=== PATIENT | male | born 1935 | race Caucasian/White ===

== ENCOUNTER 2017-02-02 11:37 | Outpatient (CLI) | payer MEDICARE, OTHER ==
[~2017-02-02] VITALS: Ht 185.4 cm; Wt 78.6 kg
--- NOTE | ~2017-02-02 | HEMODYNAMI ---
PATIENT:DAVID GUADARRAMA MEDICAL RECORD: [id number] : 39 LOCATION:[facility] ADMISSION DATE: 02/02/17 Generatedon:02/02/201715:01 Patient name: DAVID GUADARRAMA Patient #: [id number] : 1935 Date of study: 02/02/2017 Page: Of Hemodynamic Procedure Report Patient Data Patient Demographics Procedure consent was obtained First Name: DAVID Gender: Male Last Name: THIERRY : 1935 Patient #: [id number] Age: 81 year(s) Race: SSN: [id number] Additional ID: [id number] Contact details [address]: [address] [place] [address] State: [place] City: [place] Zip code: [address] Past Medical History Allergies: No known allergies Admission Admission Data Admission Date: 02/02/2017 Admission Time: 11:37 Admit Source: Other Insurance Payor: Medicare, Private health insurance Height (in.): 73 BSA: 2.02 (m2) Height (cm.): 185.42 BMI: 22.82 (kg/m2) Weight (lbs.): 173 Weight (kg.): 78.47 Procedure Procedure Types Cath Procedure Diagnostic Procedure PPM/ICD PPM Dual Implant Miscellaneous Procedures Moderate Sedation up to 45 minutes Procedure Description Procedure Date Procedure Date: 02/02/2017 Procedure Start Time: 14:15 Procedure End Time: 14:57 Procedure Staff Name Function Keke Elizabeth RT Scrub Elkin Mancia RN Nurse Magdy Green MD Assisting physician Jay Sumner MD Performing Physician Luis Ruiz RT Monitor Procedure Data Cath Procedure Fluoroscopy Diagnostic fluoroscopy Total fluoroscopy Time: 1.6 time: 1.6 min min Diagnostic fluoroscopy Total fluoroscopy dose: 63 dose: 63 mGy mGy Contrast Material Contrast Material Type Amount (ml) Isovue 300 0 Estimated blood loss: 5 ml Procedure Complications No complications Procedure Medications Medication Administration Route Dosage Oxygen NC 2 l/min Ancef (1Gm/50ml NS) I.V.P.B 1 g 0.9% NaCl I.V. 100 ml/hr Fentanyl I.V. 50 mcg Versed I.V. 1 mg Fentanyl I.V. 50 mcg Versed I.V. 1 mg Ancef Irrigation Topical 1 g (1gm/500ml NS) Hemodynamics Rest BSA: 2.02 (m2) O2 Consumption: Estimated: 231.89 (ml/min) O2 Consumption indexed : Estimated:114.8 (ml/min/m) Heart Rate: 72 (bpm) Snapshots Pre Cath Intra NCS Post Cath Vital Signs Time Heart Resp SPO2 NIBP (mmHg) Rhythm Pain Sedation Rate (ipm) (%) Status Level (bpm) 13:54:24 81 18 99 158/93(129) NSR 0 (11) 10(A) , No pain 13:58:40 86 19 96 170/91(145) NSR 0 (11) 10(A) , No pain 14:03:00 68 20 96 168/91(138) NSR 0 (11) 10(A) , No pain 14:08:03 81 19 99 169/94(137) NSR 0 (11) 10(A) , No pain 14:18:46 72 19 96 153/93(123) NSR 0 (11) 10(A) , No pain 14:22:58 94 20 97 137/78(101) NSR 0 (11) 10(A) , No pain 14:27:16 94 19 96 120/60(93) NSR 0 (11) 10(A) , No pain 14:31:26 80 17 96 125/70(109) NSR 0 (11) 10(A) , No pain 14:35:34 97 19 97 119/77(89) NSR 0 (11) 10(A) , No pain 14:39:44 90 19 98 121/65(97) NSR 0 (11) 10(A) , No pain 14:43:52 93 16 96 119/70(89) NSR 0 (11) 10(A) , No pain 14:47:57 96 14 97 124/74(102) NSR 0 (11) 10(A) , No pain 14:52:03 109 14 97 123/79(94) NSR 0 (11) 10(A) , No pain 14:56:13 86 13 99 137/70(99) NSR 0 (11) 10(A) , No pain Medications Time Medication Route Dose Verified Delivered Reason Notes Effective ness by by 13:54:26 Oxygen NC 2 Elkin Elkin Per l/min Gavino Mancia RN physician RN 13:54:42 Ancef I.V.P.B 1 g Elkin Elkin Per (1Gm/50ml Gavino Mancia RN physician NS) RN 13:54:52 Ancef Topical 1 g Elkin Elkin Per Irrigation Gavino Mancia RN physician (1gm/500ml RN NS) 13:54:56 0.9% NaCl I.V. 100 Elkin Elkin Per ml/hr Gavino Mancia RN physician RN 14:10:46 Versed I.V. 1 mg Elkin Elkin for Gavino Mancia RN sedation RN 14:11:37 Fentanyl I.V. 50 Elkin Elkin for mcg Gavino Mancia RN sedation RN 14:21:18 Fentanyl I.V. 50 Elkin Elkin for [facility] Gavino Mancia RN sedation RN 14:21:21 Versed I.V. 1 mg Elkin Elkin for Gavino Mancia RN sedation dog daycare provider Log Time Note 13:30:35 Elkin Mancia RN sent for patient. Start room use. 13:45:23 Medtronic charter representative J[place] LAGOS present for procedure. 13:53:14 Vital chart was started 13:54:26 Oxygen 2 l/min NC was administered by Elkin Mancia RN; Per physician; 13:54:42 Ancef (1Gm/50ml NS) 1 g I.V.P.B was administered by Elkin Mancia RN; Per physician; 13:54:52 Ancef Irrigation (1gm/500ml NS) 1 g Topical was administered by Elkin Mancia RN; Per physician; 13:54:56 0.9% NaCl 100 ml/hr I.V. was administered by Elkin Mancia RN; Per physician; 13:59:05 Informed consent obtained and on chart 13:59:11 Admit Source: Other 13:59:34 Diagnostic Cath status Elective 13:59:42 Time tracking: Regular hours 13:59:46 Plan of Care:Hemodynamics will remain stable., Cardiac rhythm will remain stable., Comfort level will be maintained., Respiratory function will remain adequate., Patient/ family verbilizes understanding of procedure., Procedure tolerated without complication., Recovers from procedure without complications.. 13:59:55 Patient received from Pre/Post Procedure Room to CCL 2 Alert and oriented. Tansferred to table in Supine position. 13:59:56 Correct patient and procedure confirmed by team. 13:59:56 Warm blankets applied, and dominic hugger turned on for patient comfort. 13:59:57 ECG and BP/O2 sat monitors applied to patient. 14:00:04 Baseline sample Acquired. 14:06:30 Rhythm: sinus rhythm 14:06:44 Pre-procedure instructions explained to patient. 14:06:44 H&P Date Dictated: 01/14/2017 Within 30 days and on chart., H&P Addendum completed by physician on day of procedure. (MUST COMPLETE FOR ALL OUTPATIENTS). 14:06:45 Pre-op teaching completed and patient verbalized understanding. 14:06:46 Family in waiting room. 14:06:47 Patient NPO since Midnight. 14:06:51 Patient allergic to No known allergies 14:06:53 Is the patient allergic to Iodine/contrast media? No. 14:06:55 Is patient on blood thinner?Yes 14:06:57 Patient diabetic? No. 14:07:02 Previous problem with sedation/anesthesia? No ? 14:07:03 Snore? Yes 14:07:04 Sleep apnea? No 14:07:05 Opens mouth fully? Yes 14:07:05 Deviated septum? No 14:07:06 Sticks out tongue? Yes 14:07:07 Airway obstruction? No ? 14:07:09 Dentures? Yes IN TIGHT 14:07:22 Patient pain scale 0/10 ?. 14:08:31 IV patent on arrival in left forearm with 0.9% NaCl at O. 14:08:34 Lab results completed and on chart. 14:08:46 Left chest area was prepped with chlora-prep and draped in sterile fashion 14:08:47 Alarms reviewed by RKatherin N. 14:08:48 Sharps counted by scrub and verified by R.N. 14:08:50 --------ALL STOP TIME OUT------ 14:08:50 Physician arrived 14:08:51 Final Timeout: patient, procedure, and site verified with staff and physician. All members of the team are in agreement. 14:08:51 Final Timeout: patient, procedure, and site verified with staff and physician. All members of the team are in agreement. 14:08:56 Left chest site verified by team. 14:08:59 Physical assessment completed. ASA score P 2 - A patient with mild systemic disease as per Jay Sumner MD. 14:09:03 Sedation plan: IV Moderate Sedation Versed, Fentanyl 14:09:09 Use device set Pacemaker Set 14:09:12 Immobilizer Large opened to sterile field. 14:09:15 Mepilex Dressing opened to sterile field. 14:09:26 Medtronic 4074-52 PPM Lead opened to sterile field. 14:09:26 Medtronic 4574-45 PPM Lead opened to sterile field. 14:09:26 3.0 Vicryl Multipack [id number] opened to sterile field. 14:09:27 3.0 Vicryl Single Pack [id number] opened to sterile field. 14:09:33 5.0 Monocryl PS2 Y495G opened to sterile field. 14:10:46 Versed 1 mg I.V. was administered by Elkin Mancia RN; for sedation; 14:11:37 Fentanyl 50 mcg I.V. was administered by Elkin Mancia RN; for sedation; 14:14:10 Pre sharps counted by scrub and verified by RN: Sutures: 10 Sponges: 5 Stick needles: 2 Skin needles: 2 Blade: 1 Cautery: 1 14:14:13 Grounding pad site Left thigh. 14:14:14 Grounding pad site free from injury. 14:14:23 Procedure started. 14:14:24 Lidocaine 1% w/epi and Bupivacaine 0.5% to left subclavicular area by Magdy Green MD. 14:14:41 Incision made to left subclavicular area. 14:14:59 Medtronic Adapta PPM Dual Generator opened to sterile field. 14:15:15 2.0 Ticron Multipack opened to sterile field. 14:15:29 Generator pocket made/opened. 14:15:34 2.0 Ticron Multipack opened to sterile field. 14:15:44 Full Disclosure recording started 14:19:00 Left subclavian vein accessed with 9Fr Safe Sheath. 14:21:18 Fentanyl 50 mcg I.V. was administered by Elkin Mancia RN; for sedation; 14::21 Versed 1 mg I.V. was administered by Elkin Mancia RN; for sedation; 14:22:21 Peel-a-way sheath was split and removed. 14:22:44 Ventricular lead inserted and advanced. 14:22:54 Ventricular lead positioned. 14:23:04 Ventricular lead tested. 14:23:08 Left subclavian vein accessed with 7Fr Safe Sheath. 14:23:21 Atrial lead inserted and advanced. 14:23:33 Atrial lead positioned. 14:23:52 Atrial lead tested. 14:25:09 PPM Dual was attached to lead(s) and inserted into pocket. 14:25:21 PPM Dual was inserted subcutaneously to left chest. 14:25:25 Device pocket was irrigated with Ancef. 14:27:45 Cautery Tip Fats And Oils Loader opened to sterile field. 14:28:59 Ventricular lead attachment was completed with 2-0 ticron. 14:29:03 Atrial lead attachment was completed with 2-0 ticron. 14:29:07 Generator was sutured in place with 2-0 ticron. 14:29:21 Subcutaneous closure was completed with 3-0 vicryl plus. 14:36:38 Parameters-- Generator: Mode: DEMAND. Lower Rate: 60bpm. Upper Rate: 130bpm. 14:37:13 Parameters--Ventricular P/R Wave: 15.5mV. Current: 0.3mA; Threshold: 0.3V; Impedence: 1068OHMS. 14:37:43 Parameters--Atrial P/R Wave: 0.7mV. Current: ?mA; Threshold: AFV; Impedence: 642OHMS. 14:37:57 Skin closure was completed with 3-0 vicryl plus. 14:38:27 Lt Chest incision was dressed with Mepilex dressing. 14:40:55 Post sharps counted by scrub and verified by RN: Sutures: 10 Sponges: 5 Stick needles: 2 Skin needles: 2 Blade: 1 Cautery: 1 14:40:55 Procedure ended.(Physican Out) 14:42:12 Fluoroscopy time 01.60 minutes. 14:42:18 Flurop Dose total: 63 14:42:18 Fluoroscopy dose: 63 mGy 14:42:21 Contrast amount:Isovue 300 0ml. 14:42:22 Sharps counted by scrub and verified by R.N. 14:42:31 Insertion/operative site no bleeding no hematoma. 14:42:45 Post-op/insertion site Left Chest area dressed using a Mepilex dressing. 14:42:57 Post Chest area:stable, soft, clean and dry 14:43:00 Post Procedure Pulses reassessed and unchanged 14:43:02 Post-procedure physical assessment completed. ASA score P 2 - A patient with mild systemic disease as per Jay Sumner MD. 14:43:10 Post procedure rhythm: unchanged., paced 14:44:05 Estimated blood loss: 5 ml 14:44:07 Post procedure instruction explained to patient.Patient verbalizes understanding. 14:44:07 Patient needs reinforcement of post procedure teaching. 14:50:11 Procedure type changed to Cath procedure, Diagnostic procedure, PPM/ICD, PPM Dual Implant, Miscellaneous Procedures, Moderate Sedation up to 45 minutes 14:57:23 Procedure and supply charges have been captured, reviewed, submitted and are correct. 14:57:26 Procedure Complication : No complications 14:57:29 Vital chart was stopped 14:57:30 See physician's report for complete and final results. 14:57:32 Report given to Pre/Post Procedure Room. 14:57:34 Patient transfered to Pre/Post Procedure Room with Stretcher. 14:57:36 Procedure ended. 14:57:36 Full Disclosure recording stopped 14:58:00 Patient Height : 185.42 cm 14:58:15 Insurance Payor : Private health insurance, Medicare 14:58:15 Patient Weight : 78.47 kg 15:00:10 End room use (Document Last) Device Usage Item Name Manufacture Quantity Catalog Hospital Part Current Minimal Lot# / Number Charge Number Stock Stock Serial# Code Immobilizer Cardinal 1 [id number] 133040 033318 5 Large Health Mepilex Cardinal 1 [id number] 073218 331219 167934 5 Dressing Health 3.0 Vicryl Ethicon 1 [id number] 583786 207338 983718 5 Multipack [id number] 3.0 Vicryl Ethicon 1 [id number] 978212 788641 467136 5 Single Pack [id number] 5.0 Ethicon 1 Y495G 723055 778755 138994 5 Monocryl PS2 Y495G Medtronic Medtronic 1 [id number] 968049 230631 5 Adapta PPM [id number] Dual Generator Cautery Tip Microtek 1 [id number] 504061 427946 864862 5 [employer] 2.0 Ticron Ethicon 2 [id number] 640515 16020 556220 5 Multipack Medtronic Medtronic 1 4574-45 683770 069031 5 4574-45 PPM [id number] Lead Medtronic Medtronic 1 4074-52 390056 623158 5 4074-52 PPM [id number] Lead Signature Audit Graff Stage Time Signature Unsigned Intra-Procedure 02/02/2017 Luis Ruiz 3:01:13 PM RT(R) Signatures Monitor : Luis Ruiz RT Signature : Date : Time : [facility] [address] [place] [address]
[2017-02-02 02:00] VITALS: BP 156/69
[~2017-02-02 11:37] MED LIST: BETAPACE 80 MG80 MG PO; CATAPRES TTS-10.1 MG TD; CRESTOR20 MG PO; LEVOXYL50 MCG PO; NORVASC5 MG PO; XARELTO15 MG PO
[2017-02-02 12:00] VITALS: BP 141/80; BMI 22.8
[2017-02-02 12:25] LABS: HEMOGLOBIN 13.9 g/dL (13.5-17.5); MCH 30.2 pg (26.0-34.0); MCHC 33.9 g/dL (31.0-37.0); MCV 88.9 fL (80.0-100.0); MEAN PLATELET VOLUME 9.5 fL (7.4-10.4); RBC 4.61 10x6/uL (4.20-6.10); RDW 13.9 % (11.5-14.5); WBC 7.7 10x3/uL (4.8-10.8)
[2017-02-02 12:34] LABS: ANION GAP 12.4 mmol/L (8-16); CARBON DIOXIDE 28.1 mmol/L (21.0-32.0); CREATININE - SERUM 1.2 mg/dL (0.6-1.3); POTASSIUM - SERUM 3.5 mmol/L (3.5-5.1)
[2017-02-02 12:35] LABS: APTT 30.5 SECONDS (22.8-39.4); INR 0.92 (0.85-1.17); PROTIME 12.2 SECONDS (11.6-15.0)
--- NOTE | 2017-02-02 15:56 | NUR ---
1525 SITTING UP, ROOM AIR W NO DISTRESS. DRESSING TO LEFT UPPER CHEST C/D/I WITH NO HEMATOMA OR BLEEDING. AT BEDSIDE. 1550 REPORT CALLED TO NELSON FERNANDEZ RN. PATIENT WILL TRANSFER TO [facility]OM 2120 VIA STRETCHER.
--- NOTE | 2017-02-02 16:26 | NUR ---
TRANSFERED FROM HIGH SCHOOL ASSISTANT FOOTBALL COACH BY BED. OREINTED TO ROOM. CALL LIGHT IN REACH. WILL CONT. PLAN OF CARE.
[2017-02-02 16:41] VITALS: BP 141/63; Ht 185.4 cm; Wt 78.6 kg
--- NOTE | 2017-02-02 17:23 | NUR ---
PATIENT ARRIVED FROM SHAREPOINT DESIGNER DEVELOPER POST PACEMAKER RECOVERY. AWAKE WARM AND DRY. RESPIRATIONS WITH EASE. MONITOR PLACED AND PT IN CAF WITH A RATE OF 79. UP TO BR CHACE WELL AND VOID QS. AT BEDSIDE. BROUGHT PT DINNER FROM [facility]. PT TOOK HIS OWN XARELTO.
--- NOTE | 2017-02-02 17:45 | NUR ---
CHEST XRAY HERE FOR CHEST.
--- NOTE | 2017-02-02 20:00 | NUR ---
RESTING IN BED. ALERT/ORIENTED. AT BEDSIDE. PIV SALINE LOCKED IN LFA. LEFT ARM IN SLING. LEFT CHEST WALL INCISION WHERE NEW PACEMAKER HAS BEEN PLACED. CURRENTLY 70'S CONTROLLED AFIB ON TELEMETRY. NONLABORED RESPIRATIONS ON ROOM AIR. REVIEWED PLAN OF CARE. SEE SHIFT ASSESSMENT.
[2017-02-03] VITALS: BP 113/64
[2017-02-03 04:00] VITALS: BP 99/59
--- NOTE | 2017-02-03 07:30 | NUR ---
RECEIVED PT IN BED AAOX4 RESP UNLABORED SKIN W/D COLOR WNL PT DENIES ANY PAIN O DISCOMFORT AT THIS TIME NAD NOTED
[2017-02-03 07:48] VITALS: BP 125/70
--- NOTE | 2017-02-03 10:44 | NUR ---
REVIEWED DISCHARGE INSTRUCTIONS WITH PT AND BOTH STATE UNDERSTANDING COPY GIVEN SALINE LOCK DCD TO LFA WITH IV CATHETER INTACT PT DISCHARGED HOME IN STABLE CONDITION LEFT VIA W/C WITH ALL PERSONAL BELONGINGS
--- NOTE | 2017-02-05 09:45 | OP ---
PATIENT NAME: DAVID GUADARRAMA MEDICAL RECORD: [id number] :37 LOCATION:[facility] ADMISSION DATE: SURGEON: VELASQUEZ NEVES MD DATE OF OPERATION: 02/02/2017 PROCEDURE: Lead portion of permanent pacemaker placement. SURGEON: Magdy Green MD. INDICATION: Sick sinus syndrome with atrial fibrillation and pauses. DESCRIPTION OF PROCEDURE: After left subclavian was cannulated via modified Seldinger technique via Dr. Green; first, under fluoroscopic guidance, RV lead was placed in the RV apex without difficulty. After adequate R waves and thresholds were obtained, again, under fluoroscopic guidance, I then placed the right atrial lead in right atrial appendage without difficulty. After adequate fibrillatory waves were obtained, the leads were attached to appropriate poles of the generator and the pocket was closed via Dr. Green. IMPRESSION: Successful lead portion of permanent pacemaker placement of David Guadarrama. COMPLICATIONS: None. DISPOSITION: To the floor, stable. ESTIMATED BLOOD LOSS: Minimal. TRANSINT:[id number] Voice Confirmation ID: [id number] DOCUMENT ID: [id number] VELASQUEZ NEVES MD at 0945 CC: [id number] DICTATION DATE: 02/02/17 1434 FILTERING MACHINE TENDER: 02/03/17 0001 DEP CLI 02/03/17 [id number] [place] [address]
--- NOTE | 2017-02-18 09:40 | OP ---
PATIENT NAME: DAVID GUADARRAMA MEDICAL RECORD: [id number] :37 LOCATION:[facility] ADMISSION DATE: SURGEON: GIN SHORE MD DATE OF OPERATION: 02/02/2017 This is a cosurgeon case. PREOPERATIVE DIAGNOSIS: Sick sinus syndrome with pauses. POSTOPERATIVE DIAGNOSIS: Sick sinus syndrome with pauses. PROCEDURE: Creation of left infraclavicular pacemaker pocket, introduction of atrial and ventricular leads into the central venous system, a placement of pacemaker in the pocket with closure. This is cosurgeon case, pinked edge sewing machine operator, Dr. Jay Sumner. ANESTHESIA: Local with IV sedation. COMPLICATIONS: None. The risks, possible complications and alternatives to procedure were explained to the patient. He elects to proceed. OPERATIVE COURSE: The patient was in the cardiac catheterization laboratory. The left chest was sterilely prepped and draped. The local anesthetic was used to infiltrate the skin and subcutaneous tissues inferior to the left clavicle. A transverse incision was accomplished. Sharp dissection was carried down through skin and subcutaneous tissues. A subcutaneous pocket was created in a caudad direction. Through this pocket, I accessed the left subclavian vein utilizing an antegrade infraclavicular approach. This was done under fluoroscopic guidance. Under fluoroscopic guidance, a dilator sheath, which was a 9-Amharic sheath, was inserted over the wire. The dilator was removed. Through the sheath, a ventricular lead was advanced. The peel-away sheath was removed. Dr. Jay Sumner positioned the ventricular lead. Appropriate thresholds were obtained. I sutured the leads to the underlying pectoralis fascia with 2-0 TiCron times 2. Over the secondary wire, a 7-Amharic dilator sheath was advanced. The dilator and wire were removed. Through the sheath, an atrial lead was advanced and the peel-away sheath was then removed. Dr. Jay Sumner then positioned the atrial lead. Appropriate thresholds were obtained. I sutured the TiCron, laid down to the underlying pectoralis fascia. I then placed a single 2-0 TiCron around the leads medially to prevent any backbleeding. I confirmed that the ventricular lead was indeed the serial number for the ventricular lead and placed this in the ventricular dock of the pacemaker. I then tightened down with the wrench. I confirmed that the atrial lead serial number was indeed the atrial lead serial number, placed this in the atrial dock of the pacemaker generator and tightened down with the wrench. I irrigated the pacemaker pocket. I placed the pacemaker in the pacemaker pocket with care paid to place the leads posterior to the pacemaker generator itself. The deep adipose tissue was closed with interrupted 3-0 Vicryls. The subcutaneous adipose tissue was closed with interrupted 3-0 Vicryls. The skin OPERATIVE REPORT [id number] DAVID GUADARRAMA was approximated with a running intracuticular 3-0 Vicryl. A sterile dressing was applied. I then examined the atrial and ventricular leads under fluoroscopy and they appeared to be intact and a there had been no dislodgement. TRANSINT:[id number] Voice Confirmation ID: [id number] DOCUMENT ID: [id number] GIN SHORE MD at 0940 CC: [id number] DICTATION DATE: 02/02/17 1535 MID LEVEL CLINICIAN: 02/03/17 0139 DEP CLI 02/03/17 [address] [place] [address]
== END 2017-02-03 10:44 | disposition home or self-care (01) ==
LOC: D.CATH 11:37 → D.M2 16:23 → D.CATH 02-03 10:44
PROVIDERS: Internal Medicine Interventional Cardiology
DX: I49.5 Sick sinus syndrome (principal); I48.91 Unspecified atrial fibrillation; I10 Essential (primary) hypertension

== ENCOUNTER 2017-05-26 09:16 | Outpatient (CLI) | payer MEDICARE, OTHER ==
[~2017-05-26] VITALS: Ht 185.4 cm; Wt 80.5 kg
--- NOTE | ~2017-05-26 | HEMODYNAMI ---
PATIENT:DAVID GUADARRAMA MEDICAL RECORD: [id number] : 39 [id number] ADMISSION DATE: 05/26/17 Generatedon:05/26/201711:38 Patient name: DAVID GUADARRAMA Patient #: [id number] : 1935 Date of study: 05/26/2017 Page: Of Hemodynamic Procedure Report Patient Data Patient Demographics Procedure consent was obtained First Name: DAVID Gender: Male Last Name: THIERRY : 1935 Patient #: [id number] Age: 82 year(s) Race: SSN: [id number] Additional ID: [id number] Contact details Address: [address] [place] [address] [facility] State: [place] City: [place] Zip code: [address] Past Medical History Allergies: No known allergies Admission Admission Data Admission Date: 05/26/2017 Admission Time: 9:16 Lab Results Lab Result Date: 05/26/2017 Lab Result Time: 0:00 Biochemistry Name Units Result Min Max BUN mg/dl 12 --(-*--)-- 7 18 Creatinine mg/dl 1.2 --(---*)-- 0.6 1.3 CBC Name Units Result Min Max Hemoglobin g/dl 14 --(*---)-- 13.5 17.5 Coagulation Name Units Result Min Max INR units 2.07 --(----)-* 0.85 1.17 PT sec 23.4 --(----)-* 11.6 15 Procedure Procedure Types Cath Procedure Diagnostic Procedure Cardioversion Procedure Description Procedure Date Procedure Date: 05/26/2017 Procedure Start Time: 11:30 Procedure End Time: 11:37 Procedure Staff Name Function Murray Bruno MD Performing Physician Thelma Antoine RN Nurse Pancho Horan RT Monitor Carlos Alberto Vance RT Sheriff'S Detective Elkin Mancia RN Sheriff'S Detective Procedure Data Cath Procedure Fluoroscopy Diagnostic fluoroscopy Total fluoroscopy Time: 0 time: 0 min min Diagnostic fluoroscopy Total fluoroscopy dose: 0 dose: 0 mGy mGy Contrast Material Contrast Material Type Amount (ml) Isovue 300 0 Estimated blood loss: 0 ml Procedure Complications No complications Procedure Medications Medication Administration Route Dosage Oxygen NC 2 l/min Refer to Anesthesia Notes for Sedation Medications Hemodynamics Rest HGB: 14 (g/dl) Heart Rate: 61 (bpm) Snapshots Pre Cath Intra NCS Post Cath Vital Signs Time Heart Resp SPO2 etCO2 TF2mvci Respiration NIBP (mmHg) Rhythm Tomas n Sedation Rate (ipm) (%) (mmHg) (mmHg) (CO2) (ipm) Status Leve l (bpm) 11:11:12 74 16 100 35 3 126/100(116) Paced 0 ( 11) 10(A) , No pain 11:15:18 62 14 99 27.1 4.5 13 138/82(127) Paced 0 ( 11) 10(A) , No pain 11:19:28 60 14 98 30.8 3.7 13 138/80(123) Paced 0 ( 11) 10(A) , No pain 11:23:38 60 17 99 31.6 3.7 13 135/81(122) Paced 0 ( 11) 10(A) , No pain 11:27:47 61 21 99 24.1 3.7 14 141/80(128) Paced 0 ( 11) 10(A) , No pain 11:32:46 64 15 95 0 0 Measuring Paced 0 ( 11) 6(A) , No pain 11:33:09 63 20 96 34.6 0 127/77(109) Paced 0 ( 11) 6(A) , No pain 11:37:19 65 16 99 27.8 0 8 131/72(109) Paced 0 ( 11) 10(A) , No pain Medications Time Medication Route Dose Verified Delivered Reason Notes Effectiv eness by by 11:10:03 Oxygen NC 2 Murray Thelma Per l/min Damion Antoine RN physician 11:28:24 Refer to Murray Murray Per Dr Feliciano Anesthesia Damion Bruno MD physician at Notes for bedside Sedation for Medications sedation Procedure Log Time Note 10:45:23 Elkin Mancia RN sent for patient. Start room use. 10:56:25 Time tracking: Regular hours 10:56:30 Plan of Care:Hemodynamics will remain stable., Cardiac rhythm will remain stable., Comfort level will be maintained., Respiratory function will remain adequate., Patient/ family verbilizes understanding of procedure., Procedure tolerated without complication., Recovers from procedure without complications.. 11:04:25 Patient arrived from Pre/Post Procedure Room to CCL 1. Patient remains on bed/stretcher for procedure. 11:04:27 Warm blankets applied, and dominic hugger turned on for patient comfort. 11:04:28 Correct patient and procedure confirmed by team. 11:04:29 Signed procedure consent form obtained from patient. 11:04:30 ECG and BP/O2 sat monitors applied to patient. 11:04:55 Is patient on blood thinner?Yes 11:04:58 ACC The patient was administered the following blood thiners within the last 24 hours: Xarelto 11:05:01 Patient diabetic? No. 11:05:05 Previous problem with sedation/anesthesia? No ? 11:05:07 Snore? Yes 11:05:08 Sleep apnea? No 11:05:09 Deviated septum? No 11:05:10 Opens mouth fully? Yes 11:05:11 Sticks out tongue? Yes 11:05:13 Airway obstruction? No ? 11:05:18 Dentures? Yes IN 11:05:32 H&P Date Dictated: 05/09/2017 Within 30 days and on chart., H&P Addendum completed by physician on day of procedure. (MUST COMPLETE FOR ALL OUTPATIENTS). 11:05:34 Pre-procedure instructions explained to patient. 11:05:34 Pre-op teaching completed and patient verbalized understanding. 11:05:37 Family in waiting room. 11:05:39 Patient NPO since Midnight. 11:05:41 Is the patient allergic to Iodine/contrast media? No. 11:05:44 Patient pain scale 0/10 ?. 11:05:51 IV patent on arrival in left forearm with 0.9% NaCl at O. 11:05:53 Lab results completed and on chart. 11:05:58 Alarms reviewed by Lidia Kruger. 11:06:10 Quick Combo opened to sterile field. 11:06:15 Quick combo pads placed on patients chest and back. 11:09:51 Vital chart was started 11:10:01 [employer] contact center representative Fermin Powelloe present for procedure. 11:10:03 Oxygen 2 l/min NC was administered by Thelma [place] RN; Per physician; ::18 Baseline sample Acquired. ::24 Rhythm: paced 11::26 Full Disclosure recording started ::14 Lab Result : BUN 12 mg/dl :: Lab Result : Hemoglobin 14 g/dl ::14 Lab Result : Creatinine 1.2 mg/dl :: Lab Result : PT 23.4 sec :: Lab Result : INR 2.07 units :36 --------ALL STOP TIME OUT------ : Final Timeout: patient, procedure, and site verified with staff and physician. All members of the team are in agreement. ::43 Physical assessment completed. ASA score P 2 - A patient with mild systemic disease as per Murray Bruno MD. 11:27:48 Sedation plan: TIVA Propofol 11:28:03 Dr Feliciano present and monitoring patient for TIVA. 11::24 Refer to Anesthesia Notes for Sedation Medications was administered by Murray Bruno MD; Per physician; Dr Feliciano at bedside for sedation ::24 Procedure started. 11:30:29 Defibrillator synced and charged to 200 Joules. 11:30:36 Shock delivered. 11:31:11 Patient cardioverted to paced. 11:32:34 Pt converted to an underlying Sinus Rhythm. ::43 Procedure ended.(Physican Out) 11:33:16 Fluoroscopy time 00.00 minutes. 11:33:17 Flurop Dose total: 0 11:33:17 Fluoroscopy dose: 0 mGy 11:33:19 Contrast amount:Isovue 300 0ml. 11:33:20 Sharps counted by scrub and verified by R.N. 11:33:32 Post-procedure physical assessment completed. ASA score P 2 - A patient with mild systemic disease as per Murray Bruno MD. 11:33:34 Post procedure rhythm: paced ::36 Estimated blood loss: 0 ml :33:37 Post procedure instruction explained to patient.Patient verbalizes understanding. :33:37 Patient needs reinforcement of post procedure teaching. 11:33:51 Procedure and supply charges have been captured, reviewed, submitted and are correct. 11:34:00 Procedure Complication : No complications 11:37:33 Vital chart was stopped 11:37:34 See physician's report for complete and final results. 11:37:44 Report given to Pre/Post Procedure Room. 11:37:48 Patient transfered to Pre/Post Procedure Room with Stretcher. 11:37:51 Procedure ended. 11:37:51 Full Disclosure recording stopped 11:37:57 End room use (Document Last) Device Usage Item Manufacture Quantity Catalog Hospital Part Current Minimal Lot# / Name Number Charge Number [facility] [place] ne# Code [facility] [employer] [place] [id number] Combo Signature Audit [place] [facility] Stage Time Signature Unsigned Intra-Procedure 05/26/2017 Pancho Horan 11:38:10 AM RT(R) Signatures Monitor : Pancho Horan RT Signature : Date : Time : [address] [id number]
[2017-05-26] MEDS ORDERED: ZESTRIL40 MG PO (09:42)
[2017-05-26] MEDS ORDERED: BETAPACE 80 MG80 MG PO (09:43)
[2017-05-26 09:52] VITALS: BP 149/85; Ht 185.4 cm; Wt 80.5 kg
[2017-05-26 10:12] LABS: BASOPHILS 0.6 % (0-2); HEMATOCRIT 41.3 % (42.0-54.0); IMMATURE GRANULOCYTES 0.3 % (0-5); MCH 30.4 pg (26.0-34.0); MCHC 33.9 g/dL (31.0-37.0); MCV 89.6 fL (80.0-100.0); MEAN PLATELET VOLUME 9.3 fL (7.4-10.4); MONOCYTES 10.8 % (2-11); NEUTROPHILS 62.3 % (40-80); PLATELET COUNT 225 10x3/uL (130-400); RBC 4.61 10x6/uL (4.20-6.10); RDW 13.1 % (11.5-14.5); WBC 6.9 10x3/uL (4.8-10.8)
[2017-05-26 10:21] LABS: INR 2.07 (0.85-1.17); PROTIME 23.4 SECONDS (11.6-15.0)
[2017-05-26 10:27] LABS: ANION GAP 10.3 mmol/L (8-16); CALCIUM 9.3 mg/dL (8.5-10.1); CARBON DIOXIDE 29.1 mmol/L (21.0-32.0); CREATININE - SERUM 1.2 mg/dL (0.6-1.3); POTASSIUM - SERUM 4.4 mmol/L (3.5-5.1)
--- NOTE | 2017-05-26 12:00 | NUR ---
1145 RECEIVED PT FROM KICKBOXING INSTRUCTOR. PT IS ALERT, DENIES ANY C/O CHEST DISCOMFORT. PACED RHYTHM, VSS. CALL LIGHT IN REACH. 1200 AT BEDSIDE. PO FLUIDS AND SANDWICH SERVED. PT DENIES NEEDS AT THIS TIME.
--- NOTE | 2017-05-26 12:27 | NUR ---
PIV REMOVED WITH DRESSING APPLIED VSS REMAIN STABLE WITH PACED RHYTHM CHEST PAIN IS DENIED PATIENT UP TO GET DRESSED FOR DISCHARGE HOME
--- NOTE | 2017-05-26 12:37 | NUR ---
VERBAL AND WRITTEN DISCHARGE GONE OVER WITH PATIENT AND FAMILY. NO MEDICATION CHANGES MADE. CHEST PAIN IS DENIED WITH VSS. LEFT VIA WC TO PARKING FOR FAMILY TO DRIVE HOME
== END 2017-05-26 12:40 ==
LOC: D.CATH 09:16
PROVIDERS: Internal Medicine Cardiovascular Disease
DX: I48.91 Unspecified atrial fibrillation (principal); R94.31 Abnormal electrocardiogram [ECG] [EKG]; Z95.0 Presence of cardiac pacemaker; I10 Essential (primary) hypertension; Z01.812 Encounter for preprocedural laboratory examination